=== PATIENT | female | born 1965 | race Two or more races ===

== ENCOUNTER 2018-11-16 11:45 | Inpatient (IN) | payer OTHER ==
[~2018-11-16] VITALS: Ht 160 cm; Wt 57.6 kg
== END 2018-11-19 11:49 | disposition home or self-care (01) | DRG 743 ==
LOC: SURH 11-18 11:45 → O/R 11-18 11:57 → SURH 11-18 12:15 → OB/GYN 11-18 17:13
PROVIDERS: ADMIT Obstetrics & Gynecology
PROC: 0UT74ZZ Resection of Bilateral Fallopian Tubes, Percutaneous Endoscopic Approach (ICD-10-PCS; 2018-11-18)
PROC: 0UT94ZZ Resection of Uterus, Percutaneous Endoscopic Approach (ICD-10-PCS; principal; 2018-11-18 12:15)
DX: D25.1 Intramural leiomyoma of uterus (principal); N80.0 Endometriosis of uterus; N83.8 Other noninflammatory disorders of ovary, fallopian tube and broad ligament